=== PATIENT | female | born 1995 | race Caucasian/White ===

== ENCOUNTER 2018-09-09 07:13 | Inpatient (IN) | payer MEDICAID ==
[2018-09-09] MEDS ORDERED: Sodium Chloride 0.9% 10 ML Syringe FLUSH PRN (07:51)
[2018-09-09] MEDS ORDERED: Ondansetron 4 MG/2 ML SDV IVPUSH PRN (07:51)
[2018-09-09] MEDS ORDERED: Nalbuphine 20 MG/ML 1 ML Syringe IVPUSH PRN (07:51)
[2018-09-09] MEDS ORDERED: Oxytocin/Lactated Ringers 10 UNIT/1,000 ML BAG IV SCH ×4 (08:00→19:31)
[2018-09-09] MEDS ORDERED: Oxytocin/Lactated Ringers 20 UNIT/1,000 ML BAG IV SCH (08:00)
--- NOTE | 2018-09-09 08:07 | PCM.LDHP ---
L&D History of Present Illness - General Date of Service: 09/09/18 Admit Problem/Dx: Patient Status Order with Admit Dx/Problem 09/09/18 07:51 Patient Status [ADT] Routine Admission Diagnosis/Problem Admission Diagnosis/Problem 39 weeks gestation of Source of Information: Patient History Limitations: Reports: No Limitations - History of Present Illness Introduction:: Melba Case is a 23-year-old at 39 weeks gestational age (JAKE 2018) by 11 week ultrasound who presents for elective induction of labor in the setting of infant measuring smaller than anticipated but not IUGR and grade 3 placenta on recent ultrasound. She was seen on 09/07/2018 end had cervical exam where she was 2/70/-3/medium/anterior. She reports since then she has been doing well. Denies any contractions. Denies any abdominal or pelvic pain. Denies any leaking of fluid or vaginal bleeding. Reports good movement. Present Illness Comments:: Melba Case is a 23-year-old at 39 weeks 0 days (JAKE 09/16/2018) by 11 week ultrasound. She has had extremely limited care with only 2 visits with myself at 34 and 38 weeks. She did have an initial ultrasound done in [place] on 03/02/2018. That ultrasound gave her an estimated due date of 09/16/2018. Patient was then seen by an ladies underwear operator at around 17 weeks gestational age due to bleeding and had confirmation ultrasound that was consistent with her earlier ultrasound. She also had labs drawn at that time. Review of those labs shows O+ blood type with negative antibody screen. Her hematocrit was 44.8 with hemoglobin of 15.7 and platelets of 200 on 04/08/2018. She is varicella and rubella immune. Her RPR, hepatitis B surface antigen and HIV were all negative. Her urine culture was negative and showed suggestion of contamination. She did not have a 1 hour glucose test done. She had anatomy ultrasound done when she was thought to be 35 weeks gestational age but was closer to 37 weeks. There were limited views of the brain, extremities, aortic arch and cord insertion. The placenta was posterior and on the right lateral side and was grade 3. The estimated weight was 2828 g (6 lbs. 4 oz.) (14th percentile). Recommendation at her visit at 38 weeks was for her to undergo elective induction of labor given the small size and the grade 3 placenta. Patient was in agreement with this plan. 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 7 oz., elective induction for baby measuring large for dates per patient report G3: Current History of Chlamydia Her has been complicated by: * Late care with only 2 visits with myself in one visit in March when she had labs done * Tobacco use in with report of 1-2 cigarettes per day during the * Alcohol use during * History of bipolar disorder as well as ADHD, anxiety and depression, not on medications at this time * History of chlamydia infection, negatives in this - Related Data Allergies/Adverse Reactions: Allergies Allergy/AdvReac Type Severity Reaction Status Date / Time No Known Allergies Allergy Verified 10/05/15 13:34 Home Medications: Home Meds . 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: Reports: : 3 Para: 1 Neurological History: Reports: Migraines (Controlled with Tylenol) Psychiatric History: Reports: ADHD, Anxiety, Bipolar, Depression - Infectious Disease History Infectious Disease History: Reports: Chicken Pox, Other (See Below) (History of Chlamydia infection) Social & Family History - Tobacco Use Smoking Status *Q: Current Every Day Smoker Tobacco Use Within Last Twelve Months: Cigarettes - Tobacco Core Measures Tobacco Use/Smoking Within Last 30 Days: Yes Smoking Frequency Within Last 30 Days: Reports: Four or Less Cigarettes Per Day Smokeless Tobacco Use in Last 30 Days: No Desires Tobacco Cessation Medication: Yes Desired Tobacco Cessation Medication: Uncertain but would like nicotine replacement therapy - Alcohol Use Alcohol Use History: Yes Number of Drinks Per Day Comment: Patient reports that she had one glass of wine on her birthday and New Year's Stacie during this - Recreational Drug Use Recreational Drug Use: No Drug Use in Last 12 Months: No - Living Situation & Occupation Living situation: Reports: Single, with Family H&P Review of Systems - Review of Systems: Review Of Systems: See Below General: Denies: Fever, Chills, Malaise, Weakness HEENT: Reports: Post Nasal Drip, Sinus Congestion. Denies: Sore Throat, Visual Changes (Reports poor vision) Pulmonary: Reports: Cough (occasional). Denies: Shortness of Breath, Wheezing Cardiovascular: Denies: Chest Pain, Palpitations, Dyspnea on Exertion Gastrointestinal: Denies: Abdominal Pain, Constipation, Diarrhea, Nausea, Vomiting Genitourinary: Denies: Dysuria, Frequency, Burning, Pain, Urgency Musculoskeletal: Reports: Other (Hip pain). Denies: Back Pain, Joint Pain, Muscle Pain Skin: Denies: Rash, Lesions Psychiatric: Reports: Depression, Anxiety Neurological: Denies: Headache L&D Exam - Exam Exam: See Below - OB Specific Contraction Duration (sec): 45-60 Contraction Frequency (min): 5-8, irregular Contraction Intensity: Mild Movement: Active Heart Tones: Present Heart Tones per Min: 125 (+15 x 15 accelerations, no decelerations) Heart Rate (FHR) Variability: Moderate (6-25 bmp) Presentation: Vertex Estimated Weight: 6-6.5 pounds by K[place], 6 lbs. 4 oz. on recent ultrasound on 09/04/2018 - Montes Score Montes Score Cervix Position: Anterior Montes Score Consistency: Soft Montes Score Effacement: >80% (80%) Montes Score Dilation: 1-2 cm (2.5 cm) Montes Score 's Station: -3 Montes Score Total: 8 - Exam General: Alert, Oriented HEENT: Conjunctiva Clear, EOMI Neck: Supple, Trachea Midline Lungs: Clear to Auscultation, Normal Respiratory Effort Cardiovascular: Regular Rate, Regular Rhythm GI/Abdominal Exam: Soft, Non-Tender, No Distention, Other (Gravid). No: Guarding, Rigid, Rebound Genitourinary: Normal external exam, Other (24 [place] Santos bulb placed through the cervix manually. Bulb filled with 50 mL of sterile water. Mother and baby tolerated well.) Extremities: Normal Inspection, No Pedal Edema Skin: Warm, Dry, Intact Psychiatric: Alert, Normal Affect, Normal Mood - Patient Data Lab Results Last 24 hrs: Laboratory Results - last 24 hr 09/09/18 Range/Units 07:49 POC Glucose 91 (70-105) mg/dL - Problem List (1) 39 weeks gestation of SNOMED Code(s): 10901910 ICD Code: Z3A.39 - 39 WEEKS GESTATION OF Status: Acute Current Visit: Yes (2) Tobacco use complicating SNOMED Code(s): 415923382, 218881826 ICD Code: O99.330 - SMOKING (TOBACCO) COMPLICATING , UNSP TRIMESTER Status: Acute Current Visit: Yes (3) Anxiety SNOMED Code(s): 26241187 ICD Code: F41.9 - ANXIETY DISORDER, UNSPECIFIED Status: Acute Current Visit: Yes (4) Depression SNOMED Code(s): 01044122 ICD Code: F32.9 - MAJOR DEPRESSIVE DISORDER, SINGLE EPISODE, UNSPECIFIED Status: Acute Current Visit: Yes (5) Bipolar disorder SNOMED Code(s): 12604400 ICD Code: F31.9 - BIPOLAR DISORDER, UNSPECIFIED Status: Acute Current Visit: Yes (6) ADHD SNOMED Code(s): 764284134 ICD Code: F90.9 - ATTENTION-DEFICIT HYPERACTIVITY DISORDER, UNSPECIFIED TYPE Status: Acute Current Visit: Yes (7) Late care affecting in third trimester SNOMED Code(s): 713615360, 002910151, 216415716 ICD Code: O09.33 - SUPRVSN OF PREG W INSUFFICIENT ANTENAT CARE, THIRD TRIMESTER Status: Acute Current Visit: Yes Problem List Initiated/Reviewed/Updated: Yes Orders Last 24hrs: Active Orders 24 hr Category Date Time Status Patient Status [ADT] Routine ADT 09/09/18 07:51 Ordered Activity as Tolerated [RC] PFP Care 09/09/18 07:51 Ordered Blood Glucose Check, Bedside [RC] Q2HR Care 09/09/18 07:51 Ordered Communication Order [RC] ASDIRECTED Care 09/09/18 07:51 Ordered Heart Tones [RC] ASDIRECTED Care 09/09/18 07:52 Ordered Non Stress Test [RC] PER UNIT ROUTINE Care 09/09/18 07:51 Ordered Notify Provider Vital Signs [RC] PRN Care 09/09/18 07:53 Ordered Notify Provider [RC] PFP Care 09/09/18 07:51 Ordered Notify Provider [RC] PRN Care 09/09/18 07:51 Ordered Peripheral IV Care [RC] . DIRECTED Care 09/09/18 07:52 Ordered Pump Management, Intrathecal [RC] ASDIRECTED Care 09/09/18 07:53 Ordered Vital Signs [RC] PER UNIT ROUTINE Care 09/09/18 07:51 Ordered Regular Diet [DIET] Diet 09/09/18 Breakfast Ordered CBC WITH AUTO DIFF [HEME] Routine Lab 09/09/18 07:51 Ordered DRUG SCREEN, URINE [URCHEM] Routine Lab 09/09/18 07:51 Ordered RAPID PLASMA REAGIN,RPR [CHEM] Routine Lab 09/09/18 07:51 Ordered Lactated Ringers [Ringers, Lactated] 1,000 ml Med 09/09/18 08:00 Ordered IV ASDIRECTED Nalbuphine [Nubain] Med 09/09/18 07:51 Ordered 10 mg IVPUSH Q2H PRN Ondansetron [Zofran] Med 09/09/18 07:51 Ordered 4 mg IVPUSH Q4H PRN Oxytocin [Pitocin] 20 unit Med 09/09/18 08:00 Ordered Lactated Ringers [Ringers, Lactated] 1,000 ml IV TITRATE Oxytocin/Lactated Ringers [Pitocin in LR 10 Units/1,000 Med 09/09/18 08:00 Ordered ML] 10 unit in 1,000 ml IV .CONTINUOUS Oxytocin/Lactated Ringers [Pitocin in LR 10 Units/1,000 Med 09/09/18 08:00 Ordered ML] 10 unit in 1,000 ml IV .CONTINUOUS Sodium Chloride 0.9% [Saline Flush] Med 09/09/18 07:51 Ordered 10 ml FLUSH ASDIRECTED PRN Electronic Heart Tones Ext w TOCO [WOMSER] Oth 09/09/18 07:51 Ordered Routine Electronic Heart Tones Internal [WOMSER] Per Unit Oth 09/09/18 07:51 Ordered Routine Peripheral IV Insertion Adult [OM.PC] Routine Oth 09/09/18 07:51 Ordered Resuscitation Status Routine Resus Stat 09/09/18 07:51 Ordered Assessment/Plan Comment:: On initial cervical exam patient was dilated to 2.5/80/-3/anterior/soft. Peripheral [place] Santos bulb was placed manually through the cervix and filled with 50 mL of sterile water. Mother and baby tolerated procedure well. Refer to observation for elective induction of labor Start Pitocin for induction of labor Continuous monitoring Place IV and have Lactated Ringer's at 125 ml/hr May have small amounts of regular diet Activity as tolerated May have epidural as desired Plans to breast-feed after delivery Patient desires smoking cessation after delivery, we will discuss method after delivery. Anticipate vaginal delivery unless otherwise indicated Chris Weeks M.D. 8:21 AM 09/09/2018
[2018-09-09] MEDS ORDERED: fentaNYL 100 MCG/2 ML SDV EPIDUR PRN (08:22)
[2018-09-09] MEDS ORDERED: diphenhydrAMINE 50 MG/ML SDV IVPUSH PRN (08:22)
[2018-09-09] MEDS ORDERED: fentaNYL/Bupivacaine-NS 2 MCG/ML-0.125%/PF 100 ML Bag EP SCH (08:30)
--- NOTE | 2018-09-09 11:19 | PCM.PNLD ---
Labor Progress Note - VS & Meds Vital Signs: Last Vital Signs Temp 36.8 C 09/09/18 07:51 Pulse 93 09/09/18 07:51 Resp 18 09/09/18 07:51 BP 104/74 09/09/18 07:51 Pulse Ox Active Medications: Current Medications Diphenhydramine HCl (Benadryl) 25 mg IVPUSH Q6H PRN PRN Reason: Itching Ephedrine Sulfate (Ephedrine Sulfate) 5 mg IVPUSH ASDIRECTED PRN PRN Reason: HYPOTENTSION Fentanyl (Sublimaze) 100 mcg EPIDUR Q3H PRN PRN Reason: Pain Fentanyl/Bupivacaine HCl (Kkyqzwyj-Fuzri-Ds 2 Mcg/Ml-0.125%) 100 ml EP ASDIRECTED NEENA Lactated Ringer's (Ringers, Lactated) 1,000 mls @ 100 mls/hr IV ASDIRECTED NEENA Oxytocin/Lactated Ringer's (Pitocin In Lr 20 Units/1,000 Ml) 20 unit in 1,000 mls @ 6 mls/hr IV TITRATE NEENA; Protocol Oxytocin/Lactated Ringer's (Pitocin In Lr 10 Units/1,000 Ml) 10 unit in 1,000 mls @ 100 mls/hr IV .CONTINUOUS NEENA Oxytocin/Lactated Ringer's (Pitocin In Lr 10 Units/1,000 Ml) 10 unit in 1,000 mls @ 500 mls/hr IV .CONTINUOUS NEENA Influenza Virus Vaccine (Fluzone Quad [id number] Syringe) 60 mcg IM .ONCE ONE Stop: 09/09/18 16:01 Nalbuphine HCl (Nubain) 10 mg IVPUSH Q2H PRN PRN Reason: pain Ondansetron HCl (Zofran) 4 mg IVPUSH Q4H PRN PRN Reason: Nausea/Vomiting Sodium Chloride (Saline Flush) 10 ml FLUSH ASDIRECTED PRN PRN Reason: Keep Vein Open Discontinued Medications Influenza Virus Vaccine (Pharmacy To Dose - Influenza Vaccine) 1 each IM ONETIME ONE Stop: 09/09/18 09:46 - Uterine Contractions Uterine Monitoring Mode: External [place] Contraction Frequency (min): 2-5 Contraction Duration (sec): 45-60 Contraction Intensity: Moderate to Strong Uterine Resting Tone: Soft - Monitoring Monitor Mode: Doppler/Auscultation Heart Rate (FHR) Baseline: 125 Heart Rate (FHR) Variability: Moderate (6-25 bmp) Accelerations: Present, 15x15 Decelerations: None - Vaginal Exam Dilation (cm): 5 Effacement (Percent): 80 Station: -3 Cervical Position: Anterior Sterile Vaginal Exam Performed By: Chris Weeks Vaginal Exam Comment: Removed Santos bulb with small amount of vaginal bleeding noted. No active bleeding at this time. Cervical exam was 5/80/-3/soft/ anterior. - Labor Progress (Free Text) Labor Progress: * Patient progressing well. * No concerns at this time. * We will continue with the induction. Patient having some increasing frequency of contractions after placement of Santos bulb. Start on pitocin as needed if contractions space out. * Plan for artificial rupture of membranes once patient has made some cervical change with contractions * First POC blood sugar test was normal at 91. Repeat at this time and if normal we can discontinue blood sugar checks. * Anticipate vaginal delivery unless otherwise indicated. Chris Weeks MD 11:19 AM 09/09/2018
[2018-09-09] MEDS: Lactated Ringers 1,000 ML IV SCH ×3 (13:22→17:21)
--- NOTE | 2018-09-09 14:01 | PCM.PNLD ---
Labor Progress Note - VS & Meds Vital Signs: Last Vital Signs Temp 36.8 C 09/09/18 07:51 Pulse 93 09/09/18 07:51 Resp 18 09/09/18 07:51 BP 104/74 09/09/18 07:51 Pulse Ox Active Medications: Current Medications Diphenhydramine HCl (Benadryl) 25 mg IVPUSH Q6H PRN PRN Reason: Itching Ephedrine Sulfate (Ephedrine Sulfate) 5 mg IVPUSH ASDIRECTED PRN PRN Reason: HYPOTENTSION Fentanyl (Sublimaze) 100 mcg EPIDUR Q3H PRN PRN Reason: Pain Fentanyl/Bupivacaine HCl (Vnojqucs-Kivfj-Jc 2 Mcg/Ml-0.125%) 100 ml EP ASDIRECTED NEENA Lactated Ringer's (Ringers, Lactated) 1,000 mls @ 100 mls/hr IV ASDIRECTED NEENA Last Admin: 09/09/18 13:22 Dose: 100 mls/hr Oxytocin/Lactated Ringer's (Pitocin In Lr 20 Units/1,000 Ml) 20 unit in 1,000 mls @ 6 mls/hr IV TITRATE NEENA; Protocol Oxytocin/Lactated Ringer's (Pitocin In Lr 10 Units/1,000 Ml) 10 unit in 1,000 mls @ 100 mls/hr IV .CONTINUOUS NEENA Oxytocin/Lactated Ringer's (Pitocin In Lr 10 Units/1,000 Ml) 10 unit in 1,000 mls @ 500 mls/hr IV .CONTINUOUS NEENA Oxytocin/Lactated Ringer's (Pitocin In Lr 10 Units/1,000 Ml) 10 unit in 1,000 mls @ 12 mls/hr IV TITRATE NEENA; Protocol Last Admin: 09/09/18 13:30 Dose: 2 munits/min, 12 mls/hr Influenza Virus Vaccine (Fluzone Quad [id number] Syringe) 60 mcg IM .ONCE ONE Stop: 09/09/18 16:01 Nalbuphine HCl (Nubain) 10 mg IVPUSH Q2H PRN PRN Reason: pain Ondansetron HCl (Zofran) 4 mg IVPUSH Q4H PRN PRN Reason: Nausea/Vomiting Sodium Chloride (Saline Flush) 10 ml FLUSH ASDIRECTED PRN PRN Reason: Keep Vein Open Discontinued Medications Influenza Virus Vaccine (Pharmacy To Dose - Influenza Vaccine) 1 each IM ONETIME ONE Stop: 09/09/18 09:46 - Uterine Contractions Uterine Monitoring Mode: External [place] Contraction Frequency (min): irregular, 3-8 Contraction Duration (sec): 30-60 Contraction Intensity: Moderate to Strong Uterine Resting Tone: Soft - Monitoring Monitor Mode: Doppler/Auscultation Heart Rate (FHR) Baseline: 125 Heart Rate (FHR) Variability: Moderate (6-25 bmp) Accelerations: Present, 15x15 Decelerations: None Strip Review: Category I - Vaginal Exam Dilation (cm): 6 Effacement (Percent): 90 Station: -2 Cervical Position: Anterior Sterile Vaginal Exam Performed By: Chris Weeks Vaginal Exam Comment: Artificial rupture membranes performed with AmniHook. Return of clear fluid. Mother and baby tolerated procedure well. Cervix was 6/ 90/-2/soft/anterior. - Labor Progress (Free Text) Labor Progress: Patient with spacing out of her contractions since removal of the Santos bulb. Patient started on Pitocin for augmentation of labor. Artificial rupture of membranes with clear fluid. Continue to monitor contractions. Patient may have epidural as desired Urine drug screen negative Anticipate vaginal delivery unless otherwise indicated. Chris Weeks M.D. 2:01 PM 09/09/2018
--- NOTE | 2018-09-09 14:32 | PCM.PREANE ---
Preanesthetic Assessment - Anesthesia/Transfusion/Family Hx Anesthesia History: Prior Anesthesia Without Reaction Family History of Anesthesia Reaction: No Transfusion History: No Prior Transfusion(s) - Review of Systems General: Fatigue Pulmonary: No Symptoms Cardiovascular: No Symptoms Gastrointestinal: Abdominal Pain (labor contractions) Neurological: No Symptoms Other: Reports: None - Physical Assessment Pulse: 86 O2 Sat by Pulse Oximetry: 98 Respiratory Rate: 18 Blood Pressure: 107/43 Temperature: 36.8 C Vital Signs: Last Vital Signs Temp 36.8 C 09/09/18 07:51 Pulse 93 09/09/18 07:51 Resp 18 09/09/18 07:51 BP 104/74 09/09/18 07:51 Pulse Ox Height: 1.63 m Weight: 86.183 kg ASA Class: 2 Mental Status: Alert & Oriented x3 Airway Class: Mallampati = 1 Dentition: Reports: Normal Dentition Thyro-Mental Finger Breadths: 3 Mouth Opening Finger Breadths: 3 ROM/Head Extension: Full Lungs: Clear to Auscultation, Normal Respiratory Effort Cardiovascular: Regular Rate, Regular Rhythm - Lab Values: Laboratory Last Values WBC 9.53 K/mm3 (3.98-10.04) 09/09/18 08:00 RBC 3.93 M/mm3 (3.98-5.22) L 09/09/18 08:00 Hgb 12.2 gm/L (11.2-15.7) 09/09/18 08:00 Hct 36.2 % (34.1-44.9) 09/09/18 08:00 MCV 92.1 fl (79.4-94.8) 09/09/18 08:00 MCH 31.0 pg (25.6-32.2) 09/09/18 08:00 MCHC 33.7 g/dl (32.2-35.5) 09/09/18 08:00 RDW Std Deviation 42.5 fL (36.4-46.3) 09/09/18 08:00 Plt Count 344 K/mm3 (182-369) 09/09/18 08:00 MPV 9.5 fl (9.4-12.3) 09/09/18 08:00 Neut % (Auto) 51.7 % (34.0-71.1) 09/09/18 08:00 Lymph % (Auto) 31.6 % (19.3-51.7) 09/09/18 08:00 [place] % (Auto) 10.5 % (4.7-12.5) 09/09/18 08:00 Eos % (Auto) 5.5 (0.7-5.8) 09/09/18 08:00 Baso % (Auto) 0.2 % (0.1-1.2) 09/09/18 08:00 Neut # (Auto) 4.93 K/mm3 (1.56-6.13) 09/09/18 08:00 Lymph # (Auto) 3.01 K/mm3 (1.18-3.74) 09/09/18 08:00 [place] # (Auto) 1.00 K/mm3 (0.24-0.36) H 09/09/18 08:00 Eos # (Auto) 0.52 K/mm3 (0.04-0.36) H 09/09/18 08:00 Baso # (Auto) 0.02 K/mm3 (0.01-0.08) 09/09/18 08:00 POC Glucose 91 mg/dL (70-105) 09/09/18 07:49 Urine Opiates Screen Negative (WNJWHI=624) 09/09/18 10:25 Ur Buprenorphine Scrn Negative (CUTOFF=10) 09/09/18 10:25 Ur Oxycodone Screen Negative (QNM9GW=919) 09/09/18 10:25 Urine Methadone Screen Negative (IBCRZG=189) 09/09/18 10:25 Ur Propoxyphene Screen Negative (YCFHJG=338) 09/09/18 10:25 Ur Barbiturates Screen Negative (XAGUWY=926) 09/09/18 10:25 Ur Tricyclics Screen Negative (RQEFLS=405) 09/09/18 10:25 Ur Phencyclidine Scrn Negative (CUTOFF=25) 09/09/18 10:25 Ur Amphetamine Screen Negative (MBAYTR=889) 09/09/18 10:25 U Methamphetamines Scrn Negative (CZKHVT=564) 09/09/18 10:25 U Benzodiazepines Scrn Negative (NMQYPV=896) 09/09/18 10:25 U Cocaine Metab Screen Negative (VQHJFX=834) 09/09/18 10:25 U Marijuana (THC) Screen Negative (CUTOFF=50) 09/09/18 10:25 - Allergies Allergies/Adverse Reactions: Allergies Allergy/AdvReac Type Severity Reaction Status Date / Time No Known Allergies Allergy Verified 10/05/15 13:34 - Anesthesia Plan Pre-Op Medication Ordered: None - Acknowledgements Anesthesia Type Planned: Epidural Pt an Appropriate Candidate for the Planned Anesthesia: Yes Alternatives and Risks of Anesthesia Discussed w Pt/Guardian: Yes Pt/Guardian Understands and Agrees with Anesthesia Plan: Yes PreAnesthesia Questionnaire - Past Health History Medical/Surgical History: Denies Medical/Surgical History Gastrointestinal History: Reports: GERD 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 [No Known Home Meds] 10/05/15 [History] - CURRENT (IN HOUSE) MEDS Current Meds: Current Medications Diphenhydramine HCl (Benadryl) 25 mg IVPUSH Q6H PRN PRN Reason: Itching Ephedrine Sulfate (Ephedrine Sulfate) 5 mg IVPUSH ASDIRECTED PRN PRN Reason: HYPOTENTSION Fentanyl (Sublimaze) 100 mcg EPIDUR Q3H PRN PRN Reason: Pain Last Admin: 09/09/18 14:26 Dose: 100 mcg Fentanyl/Bupivacaine HCl (Bnpvbmwt-Xyuul-Ob 2 Mcg/Ml-0.125%) 100 ml EP ASDIRECTED NEENA Lactated Ringer's (Ringers, Lactated) 1,000 mls @ 100 mls/hr IV ASDIRECTED NEENA Last Admin: 09/09/18 13:22 Dose: 100 mls/hr Oxytocin/Lactated Ringer's (Pitocin In Lr 20 Units/1,000 Ml) 20 unit in 1,000 mls @ 6 mls/hr IV TITRATE NEENA; Protocol Oxytocin/Lactated Ringer's (Pitocin In Lr 10 Units/1,000 Ml) 10 unit in 1,000 mls @ 100 mls/hr IV .CONTINUOUS NEENA Oxytocin/Lactated Ringer's (Pitocin In Lr 10 Units/1,000 Ml) 10 unit in 1,000 mls @ 500 mls/hr IV .CONTINUOUS NEENA Oxytocin/Lactated Ringer's (Pitocin In Lr 10 Units/1,000 Ml) 10 unit in 1,000 mls @ 12 mls/hr IV TITRATE NEENA; Protocol Last Admin: 09/09/18 13:30 Dose: 2 munits/min, 12 mls/hr Influenza Virus Vaccine (Fluzone Quad [id number] Syringe) 60 mcg IM .ONCE ONE Stop: 09/09/18 16:01 Nalbuphine HCl (Nubain) 10 mg IVPUSH Q2H PRN PRN Reason: pain Ondansetron HCl (Zofran) 4 mg IVPUSH Q4H PRN PRN Reason: Nausea/Vomiting Sodium Chloride (Saline Flush) 10 ml FLUSH ASDIRECTED PRN PRN Reason: Keep Vein Open Discontinued Medications Influenza Virus Vaccine (Pharmacy To Dose - Influenza Vaccine) 1 each IM ONETIME ONE Stop: 09/09/18 09:46
[2018-09-09] MEDS ORDERED: Bupivacaine 0.25% 10 ML SDV ONE (16:00)
[2018-09-09] MEDS: ePHEDrine 50 MG/ML SDV IVPUSH PRN ×2 (17:00→17:17)
[2018-09-09] MEDS ORDERED: Lidocaine 1% 50 ML MDV ONE (19:00)
[2018-09-09] MEDS ORDERED: Misoprostol 200 MCG Tab ONE (19:03)
[2018-09-09] MEDS ORDERED: Lidocaine 1% 30 ML SDV INJECT ONE (19:10)
[2018-09-09] MEDS ORDERED: Misoprostol 200 MCG Tab PO STA (19:10)
[2018-09-09] MEDS ORDERED: Magnesium Hydroxide 400 MG/5 ML Susp 30 ML Cup PO PRN (19:31)
[2018-09-09] MEDS ORDERED: Hydrocortisone Acetate 25 MG Supp RECTAL PRN (19:31)
[2018-09-09] MEDS ORDERED: Lanolin 100% Cream 7 GM Tube TOP PRN (19:31)
[2018-09-09] MEDS ORDERED: Acetaminophen 325 MG Tab PO PRN (19:31)
[2018-09-09] MEDS ORDERED: Witch Hazel Medicated Pads 100/Jar TOP PRN (19:31)
[2018-09-09] MEDS ORDERED: Docusate Sodium 100 MG Cap PO PRN (19:31)
[2018-09-09] MEDS ORDERED: Benzocaine/Menthol 20%-0.5% Spray 56 GM Canister TOP PRN (19:31)
--- NOTE | 2018-09-09 19:40 | PCM.DEL ---
L & D Note - General Info Date of Service: 09/09/18 Mother's Due Date: 09/16/18 - Delivery Note Labor: Augmented by Oxytocin Cervical Ripening Method: Balloon Device, Oxytocin Delivery Outcome: Livebirth Delivery Method: Spontaneous Vaginal Delivery-Single Presentation: Left Occiput Anterior (KENNETH) Nuchal Cord: Present (x 1), Reduced Prep: Povidone-Iodine (Betadine Anesthesia Type: Epidural, Local Anesthetic: Lidocaine (Xylocaine) 1% Plain Local Anesthetic Volume: Other (10 cc) Amniotic Fluid Description: Clear Laceration: 1st Degree, Labial (left labial, repaired with 4-0 Vicryl), Perineal (midline, repaired with 4-0 Vicryl) Suture type: Vicryl Suture size: 4-0 Placenta: Intact, Spontaneous Cord: 3 Vessels Estimated Blood Loss: 400 [place]: Bulb Syringe, Stimulated, Warmed, [place] Used, Warmer Used Provider: Chris Weeks Score 1 min: 8 Score 5 min: 9 Second Stage Interventions: Reports: Pushing Effectively, Pushing, Pulls Own Legs Back Delivery Comments (Free Text/Narrative):: Stage I: Melba Case was admitted for elective induction of labor. On admission her cervix was dilated to 2 cm. She was GBS negative. She had a 24 [place] Santos bulb placed manually through the cervix and inflated with 50 mL of sterile water. After placement of the catheter she started to have contractions on her own and after approximately 3 hours the Santos bulb came out spontaneously. She continued to contract without augmentation after the Santos bulb came out. She dilated to 6 cm and had artificial rupture of membranes with clear fluid. She was started on Pitocin for augmentation of labor. She was given an epidural for anesthesia. She progressed complete and pushing. Stage II: On 09/09/2018 she had a normal vaginal delivery of a live male at 1842. Apgars of 8 & 9. Weight of 3270 g (7 lbs 3.3 oz). Length of 20.5 inches. There was a single nuchal cord that was reduced prior to delivery. was delivered in KENNETH position. The cord was doubly clamped and cut by patient. was placed on mother's abdomen. Stage III: She had a spontaneous delivery of an intact placenta in [place] presentation. Three vessel cord. She was given pitocin and fundal massage. She had a first-degree midline perineal and left labial laceration were both repaired with 4-0 Vicryl. She continued to have additional bleeding and lower uterine segment was not well contracted. She was given Cytotec 1000 mcg buccally to help with her bleeding. She had good response with the Cytotec with a firm uterus. Mom and baby were stable to recovery. EBL of 400 mL. Chris Weeks MD 7:40 PM 09/09/2018 Induction Criteria - Montes Score Montes Score Dilation: 1-2 cm Montes Score Effacement: >80% Montes Score Infant's Station: -3 Montes Score Consistency: Soft Montes Score Cervix Position: Midposition Montes Score Total: 7 - Induction Gestational Age >/= 39 wks: Yes Estimated Pelvis: Reports: Adequate Reassuring Monitoring Strip: Yes Absence of Tachy Systole: Yes - Augmentation Estimated Pelvis: Reports: Adequate Weight Estimated:: Reports: AGA Reassuring Monitoring Strip: Yes Absence of Tachy Systole: Yes - General Info Date of Service: 09/09/18 - Patient Data Vitals - Most Recent: Last Vital Signs Temp 36.8 C 09/09/18 14:32 Pulse 86 09/09/18 14:32 Resp 18 09/09/18 14:32 BP 107/43 L 09/09/18 14:32 Pulse Ox 98 09/09/18 14:32 Weight - Most Recent: 86.183 kg I&O - Last 24 Hours: Intake & Output 09/09/18 09/09/18 09/09/18 06:59 14:59 22:59 Intake Total 1240 2200 Balance 1240 2200 Lab Results Last 24 Hours: Laboratory Results - last 24 hr 09/09/18 09/09/18 09/09/18 Range/Units 07:49 08:00 10:25 WBC 9.53 (3.98-10.04) K/mm3 RBC 3.93 L (3.98-5.22) M/mm3 Hgb 12.2 (11.2-15.7) gm/L Hct 36.2 (34.1-44.9) % MCV 92.1 (79.4-94.8) fl MCH 31.0 (25.6-32.2) pg MCHC 33.7 (32.2-35.5) g/dl RDW Std Deviation 42.5 (36.4-46.3) fL Plt Count 344 (182-369) K/mm3 MPV 9.5 (9.4-12.3) fl Neut % (Auto) 51.7 (34.0-71.1) % Lymph % (Auto) 31.6 (19.3-51.7) % [place] % (Auto) 10.5 (4.7-12.5) % Eos % (Auto) 5.5 (0.7-5.8) Baso % (Auto) 0.2 (0.1-1.2) % Neut # (Auto) 4.93 (1.56-6.13) K/mm3 Lymph # (Auto) 3.01 (1.18-3.74) K/mm3 [place] # (Auto) 1.00 H (0.24-0.36) K/mm3 Eos # (Auto) 0.52 H (0.04-0.36) K/mm3 Baso # (Auto) 0.02 (0.01-0.08) K/mm3 POC Glucose 91 (70-105) mg/dL Urine Opiates Screen Negative (IGYYXB=660) Ur Buprenorphine Scrn Negative (CUTOFF=10) Ur Oxycodone Screen Negative (RST6IW=379) Urine Methadone Screen Negative (QDMZKT=687) Ur Propoxyphene Screen Negative (BEPZEK=393) Ur Barbiturates Screen Negative (QXDRBV=496) Ur Tricyclics Screen Negative (ZTMQBH=643) Ur Phencyclidine Scrn Negative (CUTOFF=25) Ur Amphetamine Screen Negative (CLLCYW=817) U Methamphetamines Scrn Negative (PNAKJE=644) U Benzodiazepines Scrn Negative (ZMTAIR=928) U Cocaine Metab Screen Negative (ABRQZI=961) U Marijuana (THC) Screen Negative (CUTOFF=50) 09/09/18 09/09/18 Range/Units 16:14 16:53 WBC (3.98-10.04) K/mm3 RBC (3.98-5.22) M/mm3 Hgb (11.2-15.7) gm/L Hct (34.1-44.9) % MCV (79.4-94.8) fl MCH (25.6-32.2) pg MCHC (32.2-35.5) g/dl RDW Std Deviation (36.4-46.3) fL Plt Count (182-369) K/mm3 MPV (9.4-12.3) fl Neut % (Auto) (34.0-71.1) % Lymph % (Auto) (19.3-51.7) % [place] % (Auto) (4.7-12.5) % Eos % (Auto) (0.7-5.8) Baso % (Auto) (0.1-1.2) % Neut # (Auto) (1.56-6.13) K/mm3 Lymph # (Auto) (1.18-3.74) K/mm3 [place] # (Auto) (0.24-0.36) K/mm3 Eos # (Auto) (0.04-0.36) K/mm3 Baso # (Auto) (0.01-0.08) K/mm3 POC Glucose 68 L 87 (70-105) mg/dL Urine Opiates Screen (FMWESV=380) Ur Buprenorphine Scrn (CUTOFF=10) Ur Oxycodone Screen (CFE3JH=863) Urine Methadone Screen (DSVPQI=321) Ur Propoxyphene Screen (DSRVVR=460) Ur Barbiturates Screen (AUTLST=611) Ur Tricyclics Screen (UXMCQJ=251) Ur Phencyclidine Scrn (CUTOFF=25) Ur Amphetamine Screen (FPLXOY=510) U Methamphetamines Scrn (UTPUEX=675) U Benzodiazepines Scrn (AMZJSU=417) U Cocaine Metab Screen (AIOWAK=972) U Marijuana (THC) Screen (CUTOFF=50) Med Orders - Current: Current Medications Acetaminophen (Tylenol) 650 mg PO Q6H PRN PRN Reason: mild pain or fever Benzocaine/Menthol (Dermoplast Pain Relief [place]) 0 gm TOP ASDIRECTED PRN PRN Reason: Perineal Comfort Measure Docusate Sodium (Colace) 100 mg PO BID PRN PRN Reason: Constipation Emollient Ointment (Lansinoh Hpa) 0 gm TOP ASDIRECTED PRN PRN Reason: Sore Nipples Hydrocortisone Acetate (Anucort-Hc) 25 mg RECTAL BID PRN PRN Reason: Hemorrhoid pain Oxytocin/Lactated Ringer's (Pitocin In Lr 10 Units/1,000 Ml) 10 unit in 1,000 mls @ 100 mls/hr IV TITRATE NEENA; Protocol Ibuprofen (Motrin) 600 mg PO Q6H PRN PRN Reason: Mild pain or fever Magnesium Hydroxide (Milk Of Magnesia) 30 ml PO BEDTIME PRN PRN Reason: Constipation Prenat Multivit/[place]/Iron/Folic Ac ( Plus Iron) 1 each PO DAILY [facility] Eliazar Talavera (Tucks) 1 pad TOP ASDIRECTED PRN PRN Reason: Hemorrhoid pain Discontinued Medications Diphenhydramine HCl (Benadryl) 25 mg IVPUSH Q6H PRN PRN Reason: Itching Ephedrine Sulfate (Ephedrine Sulfate) 5 mg IVPUSH ASDIRECTED PRN PRN Reason: HYPOTENTSION Last Admin: 09/09/18 17:17 Dose: 5 mg Fentanyl (Sublimaze) 100 mcg EPIDUR Q3H PRN PRN Reason: Pain Last Admin: 09/09/18 14:26 Dose: 100 mcg Fentanyl/Bupivacaine HCl (Uzozuanq-Mcizy-Zb 2 Mcg/Ml-0.125%) 100 ml EP ASDIRECTED NEENA Lactated Ringer's (Ringers, Lactated) 1,000 mls @ 100 mls/hr IV ASDIRECTED NEENA Last Admin: 09/09/18 17:21 Dose: 100 mls/hr Oxytocin/Lactated Ringer's (Pitocin In Lr 20 Units/1,000 Ml) 20 unit in 1,000 mls @ 6 mls/hr IV TITRATE NEENA; Protocol Oxytocin/Lactated Ringer's (Pitocin In Lr 10 Units/1,000 Ml) 10 unit in 1,000 mls @ 100 mls/hr IV .CONTINUOUS NEENA Oxytocin/Lactated Ringer's (Pitocin In Lr 10 Units/1,000 Ml) 10 unit in 1,000 mls @ 500 mls/hr IV .CONTINUOUS NEENA Oxytocin/Lactated Ringer's (Pitocin In Lr 10 Units/1,000 Ml) 10 unit in 1,000 mls @ 12 mls/hr IV TITRATE NEENA; Protocol Last Titration: 09/09/18 18:42 Dose: 900 mls/hr Influenza Virus Vaccine (Pharmacy To Dose - Influenza Vaccine) 1 each IM ONETIME ONE Stop: 09/09/18 09:46 Influenza Virus Vaccine (Fluzone Quad [id number] Syringe) 60 mcg IM .ONCE ONE Stop: 09/09/18 16:01 Lidocaine HCl (Xylocaine 1%) Confirm Administered Dose 50 ml .ROUTE .STK-MED ONE Stop: 09/09/18 19:01 Last Admin: 09/09/18 19:19 Dose: 50 ml Lidocaine HCl (Xylocaine-Mpf 1%) 50 ml INJECT ONETIME ONE Stop: 09/09/18 19:11 Last Admin: 09/09/18 19:05 Dose: 50 ml Misoprostol (Cytotec) Confirm Administered Dose 1,000 mcg .ROUTE .STK-MED ONE Stop: 09/09/18 19:04 Misoprostol (Cytotec) 1,000 mcg PO NOW STA Stop: 09/09/18 19:11 Last Admin: 09/09/18 19:05 Dose: 1,000 mcg Nalbuphine HCl (Nubain) 10 mg IVPUSH Q2H PRN PRN Reason: pain Ondansetron HCl (Zofran) 4 mg IVPUSH Q4H PRN PRN Reason: Nausea/Vomiting Sodium Chloride (Saline Flush) 10 ml FLUSH ASDIRECTED PRN PRN Reason: Keep Vein Open - Problem List & Annotations (1) 39 weeks gestation of SNOMED Code(s): 67673972 Code(s): Z3A.39 - 39 WEEKS GESTATION OF Status: Acute Current Visit: Yes (2) Tobacco use complicating SNOMED Code(s): 623762858, 233440277 Code(s): O99.330 - SMOKING (TOBACCO) COMPLICATING , UNSP TRIMESTER Status: Acute Current Visit: Yes (3) Anxiety SNOMED Code(s): 43747838 Code(s): F41.9 - ANXIETY DISORDER, UNSPECIFIED Status: Acute Current Visit: Yes (4) Depression SNOMED Code(s): 81830211 Code(s): F32.9 - MAJOR DEPRESSIVE DISORDER, SINGLE EPISODE, UNSPECIFIED Status: Acute Current Visit: Yes (5) Bipolar disorder SNOMED Code(s): 66477018 Code(s): F31.9 - BIPOLAR DISORDER, UNSPECIFIED Status: Acute Current Visit: Yes (6) ADHD SNOMED Code(s): 046519900 Code(s): F90.9 - ATTENTION-DEFICIT HYPERACTIVITY DISORDER, UNSPECIFIED TYPE Status: Acute Current Visit: Yes (7) Late care affecting in third trimester SNOMED Code(s): 992572944, 672793156, 370565047 Code(s): O09.33 - SUPRVSN OF PREG W INSUFFICIENT ANTENAT CARE, THIRD TRIMESTER Status: Acute Current Visit: Yes (8) Vaginal delivery SNOMED Code(s): 029581730 Code(s): O80 - ENCOUNTER FOR FULL-TERM UNCOMPLICATED DELIVERY Status: Acute Current Visit: Yes (9) First degree perineal laceration during delivery SNOMED Code(s): 537690549 Code(s): O70.0 - FIRST DEGREE PERINEAL LACERATION DURING DELIVERY Status: Acute Current Visit: Yes - Problem List Review Problem List Initiated/Reviewed/Updated: Yes - My Orders Last 24 Hours: My Active Orders 09/09/18 07:51 Resuscitation Status Routine 09/09/18 07:52 Peripheral IV Care [RC] . DIRECTED 09/09/18 08:00 RAPID PLASMA REAGIN,RPR [CHEM] Routine 09/09/18 10:11 Consult to Case Management/Reel Slitter [CONS] Routine 09/09/18 19:31 Patient Status [ADT] Routine Activity as Tolerated [RC] PER UNIT ROUTINE May Shower [RC] ASDIRECTED Notify Provider Vital Signs [RC] ASDIRECTED Vital Signs [RC] ASDIRECTED Acetaminophen [Tylenol] 650 mg PO Q6H PRN Benzocaine/Menthol [Dermoplast Pain Relief [place]] See Dose Instructions TOP ASDIRECTED PRN Docusate Sodium [Colace] 100 mg PO BID PRN Hydrocortisone Acetate [Anucort-HC] 25 mg RECTAL BID PRN Ibuprofen [Motrin] 600 mg PO Q6H PRN Lanolin [Lansinoh HPA] See Dose Instructions TOP ASDIRECTED PRN Magnesium Hydroxide [Milk of Magnesia] 30 ml PO BEDTIME PRN Oxytocin/Lactated Ringers [Pitocin in LR 10 Units/1,000 ML] 10 unit in 1,000 ml IV TITRATE [place] [Tucks] 1 pad TOP ASDIRECTED PRN Assess Lochia [WOMSER] Per Unit Routine Assess Uterine Involution [WOMSER] Per Unit Routine Breast Pump [WOMSER] Per Unit Routine Heat Therapy [OM.PC] PRN Ice Therapy [OM.PC] Per Unit Routine Medication Administration Instruction [OM.PC] Routine Perineal Care [OM.PC] Per Unit Routine Peripheral IV Discontinue [OM.PC] Routine Sitz Bath [OM.PC] Per Unit Routine 09/09/18 Dinner Regular Diet [DIET] 09/10/18 09:00 Vit with Ca/FA/Iron [ Plus Iron] 1 each PO DAILY 09/10/18 19:31 Heat Therapy [OM.PC] PRN - Plan Plan:: Admit to inpatient following normal spontaneous vaginal delivery Continue Pitocin per unit protocol following delivery of placenta and lactated Ringer's until tolerating regular diet Regular diet Vitals per unit routine Ibuprofen and Tylenol for pain control Assist with breast-feeding as needed Continue to monitor lochia Anticipate discharge home on day #1 or #2 Chris Weeks MD 7:48 PM 09/09/2018
--- NOTE | 2018-09-10 07:59 | PCM.SN ---
- Free Text/Narrative Note: Post Progress Note PPD # 1 Subjective: Doing well overall. Ambulating without difficulty. Lochia moderate amount overnight but seems to be slowing at this time. She had to change her pad several times over the course of 4 hours but since then has been able to make it throughout the night without changing her pad. Voiding without difficulty. Tolerating regular diet with minimal amount of nausea but denies any vomiting. Pain controlled with oral medications. Breast-feeding with bottle supplementation with minimal difficulty. Objective: Vitals: Vital Signs - 24 hr 09/09/18 09/10/18 14:32 05:31 Temperature 36.8 C Pulse, 86 66 Peripheral Respiratory 18 14 Rate Blood Pressure 107/43 L 139/99 H O2 Sat by Pulse 98 92 L Oximetry Physical Exam General: Alert and oriented, no acute distress Lungs: Clear to auscultation bilaterally Heart: Regular rate and rhythm Abdomen: Soft, minimal appropriate tenderness, non-distended, fundus midline, nontender, and at the umbilicus Extremities: Trace edema in bilateral lower extremities to ankles ASSESSMENT: 23-year-old female s/p normal vaginal delivery PPD #1, complicated by late care with 2 visits total, tobacco use in , alcohol use in , history of bipolar disorder, history of ADHD, history of anxiety, history of depression, history of chlamydia infection before and negative during the PLAN: Doing well Breast feeding with minimal difficulty. Assist as needed Lochia minimal. Continue to monitor for appropriate lochia. Continue routine care Social work consult for single mother with father is not involved and late care Anticipate discharge home tomorrow Chris Weeks MD 7:59 AM 09/10/2018
[2018-09-10] MEDS: Prenatal Multivitamin with Calcium/Folic Acid/Iron Tab PO SCH (08:12)
[2018-09-10] MEDS: Ibuprofen 600 MG Tab PO PRN ×2 (08:12→15:55)
--- NOTE | 2018-09-10 08:43 | PCM48HPAN ---
Post Anesthesia Note - EVALUATION WITHIN 48HRS OF ANESTHETIC Vital Signs in Normal Range: Yes Patient Participated in Evaluation: Yes Respiratory Function Stable: Yes Airway Patent: Yes Cardiovascular Function Stable: Yes Hydration Status Stable: Yes Pain Control Satisfactory: Yes Nausea and Vomiting Control Satisfactory: Yes Mental Status Recovered: Yes Pulse Rate: 66 Resp Rate: 14 Temperature: 98.2 F Blood Pressure: 139/99 (may be false reading)
--- NOTE | 2018-09-11 08:14 | PCM.SN ---
- Free Text/Narrative Note: Post Progress Note PPD # 2 Subjective: Doing well overall. Ambulating without difficulty. Lochia decreased significantly since yesterday and minimal at this time. Voiding without difficulty but having some burning at the laceration site with urination. Tolerating regular diet without any nausea or vomiting. Pain controlled with oral medications. Breast-feeding with bottle supplementation with minimal difficulty. Objective: Vitals: Physical Exam General: Alert and oriented, no acute distress Lungs: Clear to auscultation bilaterally Heart: Regular rate and rhythm Abdomen: Soft, minimal appropriate tenderness, non-distended, fundus midline, nontender, and at the umbilicus Extremities: Trace edema in bilateral lower extremities to mid-shins ASSESSMENT: 23-year-old female s/p normal vaginal delivery PPD #2, complicated by late care with 2 visits total, tobacco use in , alcohol use in , history of bipolar disorder, history of ADHD, history of anxiety, history of depression, history of chlamydia infection before and negative during the PLAN: Doing well Breast feeding with bottle supplementation with minimal difficulty. Assist as needed Lochia minimal. Continue to monitor for appropriate lochia. Continue routine care Social work consult without significant concerns. Gave patient information for resources available in town. Discharge home today Chris Weeks MD 8:05 AM 09/11/2018
--- NOTE | 2018-09-11 08:23 | PCM.DCSUM1 ---
Discharge Summary - Hospital Course Free Text/Narrative:: Date of Service: 09/09/18 Mother's Due Date: 09/16/18 - Delivery Note Labor: Augmented by Oxytocin Cervical Ripening Method: Balloon Device, Oxytocin Delivery Outcome: Livebirth Infant Delivery Method: Spontaneous Vaginal Delivery-Single Presentation: Left Occiput Anterior (KENNETH) Nuchal Cord: Present (x 1), Reduced Prep: Povidone-Iodine (Betadine Anesthesia Type: Epidural, Local Anesthetic: Lidocaine (Xylocaine) 1% Plain Local Anesthetic Volume: Other (10 cc) Amniotic Fluid Description: Clear Laceration: 1st Degree, Labial (left labial, repaired with 4-0 Vicryl), Perineal (midline, repaired with 4-0 Vicryl) Suture type: Vicryl Suture size: 4-0 Placenta: Intact, Spontaneous Cord: 3 Vessels Estimated Blood Loss: 400 [place]: Bulb Syringe, Stimulated, Warmed, [place] Used, Warmer Used Provider: Chris Weeks Score 1 min: 8 Score 5 min: 9 Second Stage Interventions: Reports: Pushing Effectively, Pushing, Pulls Own Legs Back Delivery Comments (Free Text/Narrative):: Stage I: Melba Case was admitted for elective induction of labor. On admission her cervix was dilated to 2 cm. She was GBS negative. She had a 24 [place] Santos bulb placed manually through the cervix and inflated with 50 mL of sterile water. After placement of the catheter she started to have contractions on her own and after approximately 3 hours the Santos bulb came out spontaneously. She continued to contract without augmentation after the Santos bulb came out. She dilated to 6 cm and had artificial rupture of membranes with clear fluid. She was started on Pitocin for augmentation of labor. She was given an epidural for anesthesia. She progressed complete and pushing. Stage II: On 09/09/2018 she had a normal vaginal delivery of a live male at 1842. Apgars of 8 & 9. Weight of 3270 g (7 lbs 3.3 oz). Length of 20.5 inches. There was a single nuchal cord that was reduced prior to delivery. Infant was delivered in KENNETH position. The cord was doubly clamped and cut by patient. Infant was placed on mother's abdomen. Stage III: She had a spontaneous delivery of an intact placenta in [place] presentation. Three vessel cord. She was given pitocin and fundal massage. She had a first-degree midline perineal and left labial laceration were both repaired with 4-0 Vicryl. She continued to have additional bleeding and lower uterine segment was not well contracted. She was given Cytotec 1000 mcg buccally to help with her bleeding. She had good response with the Cytotec with a firm uterus. Mom and baby were stable to recovery. EBL of 400 mL. HPI Initial Comments: Date of Service: 09/09/18 Mother's Due Date: 09/16/18 - Delivery Note Labor: Augmented by Oxytocin Cervical Ripening Method: Balloon Device, Oxytocin Delivery Outcome: Livebirth Infant Delivery Method: Spontaneous Vaginal Delivery-Single Presentation: Left Occiput Anterior (KENNETH) Nuchal Cord: Present (x 1), Reduced Prep: Povidone-Iodine (Betadine Anesthesia Type: Epidural, Local Anesthetic: Lidocaine (Xylocaine) 1% Plain Local Anesthetic Volume: Other (10 cc) Amniotic Fluid Description: Clear Laceration: 1st Degree, Labial (left labial, repaired with 4-0 Vicryl), Perineal (midline, repaired with 4-0 Vicryl) Suture type: Vicryl Suture size: 4-0 Placenta: Intact, Spontaneous Cord: 3 Vessels Estimated Blood Loss: 400 [place]: Bulb Syringe, Stimulated, Warmed, [place] Used, Warmer Used Provider: Chris Weeks Score 1 min: 8 Score 5 min: 9 Second Stage Interventions: Reports: Pushing Effectively, Pushing, Pulls Own Legs Back Delivery Comments (Free Text/Narrative):: Stage I: Melba Case was admitted for elective induction of labor. On admission her cervix was dilated to 2 cm. She was GBS negative. She had a 24 [place] Santos bulb placed manually through the cervix and inflated with 50 mL of sterile water. After placement of the catheter she started to have contractions on her own and after approximately 3 hours the Santos bulb came out spontaneously. She continued to contract without augmentation after the Santos bulb came out. She dilated to 6 cm and had artificial rupture of membranes with clear fluid. She was started on Pitocin for augmentation of labor. She was given an epidural for anesthesia. She progressed complete and pushing. Stage II: On 09/09/2018 she had a normal vaginal delivery of a live male infant at 1842. Apgars of 8 & 9. Weight of 3270 g (7 lbs 3.3 oz). Length of 20.5 inches. There was a single nuchal cord that was reduced prior to delivery. Infant was delivered in KENNETH position. The cord was doubly clamped and cut by patient. was placed on mother's abdomen. Stage III: She had a spontaneous delivery of an intact placenta in [place] presentation. Three vessel cord. She was given pitocin and fundal massage. She had a first-degree midline perineal and left labial laceration were both repaired with 4-0 Vicryl. She continued to have additional bleeding and lower uterine segment was not well contracted. She was given Cytotec 1000 mcg buccally to help with her bleeding. She had good response with the Cytotec with a firm uterus. Mom and baby were stable to recovery. EBL of 400 mL. Brief History: Date of Service: 09/09/18. Mother's Due Date: 09/16/18. - Delivery Note. Labor: Augmented by Oxytocin. Cervical Ripening Method: Balloon Device, Oxytocin. Delivery Outcome: Livebirth. Delivery Method : Spontaneous Vaginal Delivery-Single. Presentation: Left Occiput Anterior (KENNETH). Nuchal Cord: Present (x 1), Reduced. Prep: Povidone-Iodine ( Betadine. Anesthesia Type: Epidural, Local. Anesthetic: Lidocaine (Xylocaine) 1% Plain. Local Anesthetic Volume: Other (10 cc). Amniotic Fluid Description: Clear. Laceration: 1st Degree, Labial (left labial, repaired with 4-0 Vicryl), Perineal (midline, repaired with 4-0 Vicryl). Suture type: Vicryl. Suture size : 4-0. Placenta: Intact, Spontaneous. Cord: 3 Vessels. Estimated Blood Loss: 400. : Bulb Syringe, Stimulated, Warmed, [place] Used, Warmer Used. Provider: Chris Weeks. Score 1 min: 8. Score 5 min: 9. Second Stage Interventions: Reports: Pushing Effectively, Pushing, Pulls Own Legs Back. Delivery Comments (Free Text/Narrative):: Stage I: Melba Case was admitted for elective induction of labor. On admission her cervix was dilated to 2 cm. She was GBS negative. She had a 24 [place] Santos bulb placed manually through the cervix and inflated with 50 mL of sterile water. After placement of the catheter she started to have contractions on her own and after approximately 3 hours the Santos bulb came out spontaneously. She continued to contract without augmentation after the Santos bulb came out. She dilated to 6 cm and had artificial rupture of membranes with clear fluid. She was started on Pitocin for augmentation of labor. She was given an epidural for anesthesia. She progressed complete and pushing. Stage II: On 09/09/2018 she had a normal vaginal delivery of a live male at 1842. Apgars of 8 & 9. Weight of 3270 g (7 lbs 3.3 oz). Length of 20.5 inches. There was a single nuchal cord that was reduced prior to delivery. was delivered in KENNETH position. The cord was doubly clamped and cut by patient. Infant was placed on mother's abdomen. Stage III: She had a spontaneous delivery of an intact placenta in [place] presentation. Three vessel cord. She was given pitocin and fundal massage. She had a first-degree midline perineal and left labial laceration were both repaired with 4-0 Vicryl. She continued to have additional bleeding and lower uterine segment was not well contracted. She was given Cytotec 1000 mcg buccally to help with her bleeding. She had good response with the Cytotec with a firm uterus. Mom and baby were stable to recovery. EBL of 400 mL. Diagnosis: Stroke: No - Discharge Data Discharge Date: 09/11/18 Discharge Disposition: Home, Self-Care 01 Condition: Good - Discharge Diagnosis/Problem(s) (1) 39 weeks gestation of SNOMED Code(s): 06742241 ICD Code: Z3A.39 - 39 WEEKS GESTATION OF Status: Acute Current Visit: Yes (2) Tobacco use complicating SNOMED Code(s): 644285960, 504663109 ICD Code: O99.330 - SMOKING (TOBACCO) COMPLICATING , UNSP TRIMESTER Status: Acute Current Visit: Yes (3) Anxiety SNOMED Code(s): 49698046 ICD Code: F41.9 - ANXIETY DISORDER, UNSPECIFIED Status: Acute Current Visit: Yes (4) Depression SNOMED Code(s): 89170940 ICD Code: F32.9 - MAJOR DEPRESSIVE DISORDER, SINGLE EPISODE, UNSPECIFIED Status: Acute Current Visit: Yes (5) Bipolar disorder SNOMED Code(s): 19748428 ICD Code: F31.9 - BIPOLAR DISORDER, UNSPECIFIED Status: Acute Current Visit: Yes (6) ADHD SNOMED Code(s): 636235630 ICD Code: F90.9 - ATTENTION-DEFICIT HYPERACTIVITY DISORDER, UNSPECIFIED TYPE Status: Acute Current Visit: Yes (7) Late care affecting in third trimester SNOMED Code(s): 513301156, 960867793, 484488945 ICD Code: O09.33 - SUPRVSN OF PREG W INSUFFICIENT ANTENAT CARE, THIRD TRIMESTER Status: Acute Current Visit: Yes (8) Vaginal delivery SNOMED Code(s): 815721142 ICD Code: O80 - ENCOUNTER FOR FULL-TERM UNCOMPLICATED DELIVERY Status: Acute Current Visit: Yes (9) First degree perineal laceration during delivery SNOMED Code(s): 614740210 ICD Code: O70.0 - FIRST DEGREE PERINEAL LACERATION DURING DELIVERY Status: Acute Current Visit: Yes - Patient Summary/Data Complications: None Consults: Consultations 09/09/18 10:11 Consult to [facility] [[facility]] Routine Hospital Course: Melba Case was admitted for elective induction of labor. On admission her cervix was dilated to 2 cm. She was GBS negative. She had a 24 Q[place] foldable placed manually through the cervix and inflated with 50 mL of sterile water. She started have natural contractions without augmentation and the Santos bulb came out spontaneously. She continued to have spontaneous contractions without augmentation after the Santos bulb came out for several hours. She dilated to 6 cm and had artificial rupture of membranes with clear fluid. She was given pitocin for augmentation. She was given an epidural for anesthesia. She progressed to complete and began pushing. On 09/09/2018 she had a normal vaginal delivery of a live male infant at 1842. Apgars of 8 and 9. Weight of 3270 g (7 pounds 3.3 ounces). Her course was uneventful. Her pain was well controlled and she had minimal lochia. She was ambulating, tolerating a regular diet and voiding normally. She was breast feeding with bottle supplementation. She was afebrile and her hematocrit was 36.2 on admission. She desired to be discharged home on the morning of PPD #2. Her blood type is O+. - Patient Instructions Diet: Regular Diet as Tolerated Activity: Apply Ice, As Tolerated Activity, Other: Nothing in the vagina for 6 weeks Driving: May Drive Today Showering/Bathing: May Shower Notify Provider of: Fever, Increased Pain, Swelling and Redness, Drainage, Nausea and/or Vomiting Other/Special Instructions: Please contact your physician's office if you have heavy vaginal bleeding enough to soak a pad in less than an hour for several hours. Monitor for any signs of an infection in the breasts with severe pain or redness of the breast. - Discharge Plan *PRESCRIPTION DRUG MONITORING PROGRAM REVIEWED*: Not Applicable *COPY OF PRESCRIPTION DRUG MONITORING REPORT IN PATIENT MARKUS: Not Applicable Home Medications: Home Meds Acetaminophen [Tylenol] 650 mg PO Q6H PRN tablet 09/11/18 [Rx] Benzocaine/Menthol [Dermoplast Pain Relief [place]] 1 spray TOP ASDIRECTED PRN canister 09/11/18 [Rx] Docusate Sodium [Colace] 100 mg PO BID PRN cap 09/11/18 [Rx] Hydrocortisone Acetate [Anucort-HC] 25 mg RECTAL BID PRN supp 09/11/18 [Rx] Ibuprofen [Motrin] 600 mg PO Q6H PRN tablet 09/11/18 [Rx] Lanolin [Lansinoh HPA] 1 applic TOP ASDIRECTED PRN tube 09/11/18 [Rx] Vit with Ca/FA/Iron [ Plus Iron] 1 each PO DAILY tablet [Rx] Witch Sadaf [Tucks] 1 pad TOP ASDIRECTED PRN pad 09/11/18 [Rx] Patient Handouts: Vaginal Delivery, Care After, Care of a Perineal Tear Referrals: Chris Weeks MD [Primary Care Provider] - (Follow-up in 2-3 weeks for routine visit or earlier as needed.) - Discharge Summary/Plan Comment DC Time >30 min.: No - Patient Data Vitals - Most Recent: Last Vital Signs Temp 36.8 C 09/11/18 03:50 Pulse 59 L 09/11/18 03:50 Resp 14 09/11/18 03:50 BP 88/55 L 09/11/18 03:50 Pulse Ox 99 09/11/18 03:50 Weight - Most Recent: 86.183 kg I&O - Last 24 hours: Intake & Output 09/10/18 09/11/18 09/11/18 22:59 06:59 14:59 Intake Total 0 Balance 0 Lab Results - Last 24 hrs: Laboratory Results - last 24 hr 09/09/18 Range/Units 08:00 RPR Non-reactive (NONREACTIVE) Med Orders - Current: Current Medications Acetaminophen (Tylenol) 650 mg PO Q6H PRN PRN Reason: mild pain or fever Benzocaine/Menthol (Dermoplast Pain Relief [place]) 0 gm TOP ASDIRECTED PRN PRN Reason: Perineal Comfort Measure Last Admin: 09/09/18 20:56 Dose: 1 applic Docusate Sodium (Colace) 100 mg PO BID PRN PRN Reason: Constipation Emollient Ointment (Lansinoh Hpa) 0 gm TOP ASDIRECTED PRN PRN Reason: Sore Nipples Last Admin: 09/10/18 12:42 Dose: 1 applic Hydrocortisone Acetate (Anucort-Hc) 25 mg RECTAL BID PRN PRN Reason: Hemorrhoid pain Oxytocin/Lactated Ringer's (Pitocin In Lr 10 Units/1,000 Ml) 10 unit in 1,000 mls @ 100 mls/hr IV TITRATE NEENA; Protocol Ibuprofen (Motrin) 600 mg PO Q6H PRN PRN Reason: Mild pain or fever Last Admin: 09/10/18 15:55 Dose: 600 mg Magnesium Hydroxide (Milk Of Magnesia) 30 ml PO BEDTIME PRN PRN Reason: Constipation Prenat Multivit/[place]/Iron/Folic Ac ( Plus Iron) 1 each PO DAILY NEENA Last Admin: 09/10/18 08:12 Dose: 1 each Witch Sadaf ([place]) 1 pad TOP ASDIRECTED PRN PRN Reason: Hemorrhoid pain Last Admin: 09/09/18 20:56 Dose: 1 applic Discontinued Medications Bupivacaine HCl (Sensorcaine-Mpf 0.25%) 10 ml .ROUTE .STK-MED ONE Stop: 09/09/18 16:01 Diphenhydramine HCl (Benadryl) 25 mg IVPUSH Q6H PRN PRN Reason: Itching Ephedrine Sulfate (Ephedrine Sulfate) 5 mg IVPUSH ASDIRECTED PRN PRN Reason: HYPOTENTSION Last Admin: 09/09/18 17:17 Dose: 5 mg Fentanyl (Sublimaze) 100 mcg EPIDUR Q3H PRN PRN Reason: Pain Last Admin: 09/09/18 14:26 Dose: 100 mcg Fentanyl/Bupivacaine HCl (Ksplmazp-Axsel-Ch 2 Mcg/Ml-0.125%) 100 ml EP ASDIRECTED NEENA Lactated Ringer's (Ringers, Lactated) 1,000 mls @ 100 mls/hr IV ASDIRECTED NEENA Last Admin: 09/09/18 17:21 Dose: 100 mls/hr Oxytocin/Lactated Ringer's (Pitocin In Lr 20 Units/1,000 Ml) 20 unit in 1,000 mls @ 6 mls/hr IV TITRATE NEENA; Protocol Oxytocin/Lactated Ringer's (Pitocin In Lr 10 Units/1,000 Ml) 10 unit in 1,000 mls @ 100 mls/hr IV .CONTINUOUS NEENA Oxytocin/Lactated Ringer's (Pitocin In Lr 10 Units/1,000 Ml) 10 unit in 1,000 mls @ 500 mls/hr IV .CONTINUOUS NEENA Oxytocin/Lactated Ringer's (Pitocin In Lr 10 Units/1,000 Ml) 10 unit in 1,000 mls @ 12 mls/hr IV TITRATE NEENA; Protocol Last Titration: 09/09/18 18:42 Dose: 900 mls/hr Influenza Virus Vaccine (Pharmacy To Dose - Influenza Vaccine) 1 each IM ONETIME ONE Stop: 09/09/18 09:46 Last Admin: 09/10/18 15:45 Dose: Not Given Influenza Virus Vaccine (Fluzone Quad [id number] Syringe) 60 mcg IM .ONCE ONE Stop: 09/09/18 16:01 Last Admin: 09/10/18 15:46 Dose: Not Given Influenza Virus Vaccine (Pharmacy To Dose - Influenza Vaccine) 1 each IM ONETIME ONE Stop: 09/10/18 15:44 Influenza Virus Vaccine (Fluzone Quad [id number] Syringe) 60 mcg IM .ONCE ONE Stop: 09/10/18 16:01 Last Admin: 09/10/18 15:56 Dose: 60 mcg Lidocaine HCl (Xylocaine 1%) Confirm Administered Dose 50 ml .ROUTE .STK-MED ONE Stop: 09/09/18 19:01 Last Admin: 09/09/18 19:19 Dose: 50 ml Lidocaine HCl (Xylocaine-Mpf 1%) 50 ml INJECT ONETIME ONE Stop: 09/09/18 19:11 Last Admin: 09/09/18 19:05 Dose: 50 ml Misoprostol (Cytotec) Confirm Administered Dose 1,000 mcg .ROUTE .K-MED ONE Stop: 09/09/18 19:04 Last Admin: 09/10/18 01:39 Dose: Not Given Misoprostol (Cytotec) 1,000 mcg PO NOW STA Stop: 09/09/18 19:11 Last Admin: 09/09/18 19:05 Dose: 1,000 mcg Nalbuphine HCl (Nubain) 10 mg IVPUSH Q2H PRN PRN Reason: pain Ondansetron HCl (Zofran) 4 mg IVPUSH Q4H PRN PRN Reason: Nausea/Vomiting Sodium Chloride (Saline Flush) 10 ml FLUSH ASDIRECTED PRN PRN Reason: Keep Vein Open
[2018-09-11] MEDS: Ibuprofen 600 MG Tab PO PRN (10:06)
[2018-09-11] MEDS: Prenatal Multivitamin with Calcium/Folic Acid/Iron Tab PO SCH (10:06)
[2018-09-11 10:26] VITALS: BP 111/56
== END 2018-09-11 11:40 | disposition home or self-care (01) | DRG 806 ==
LOC: JD.OB 07:13 → OBSVTOIN 18:42 → JD.OB 18:43
PROVIDERS: ADMIT Obstetrics & Gynecology; ATTEND Obstetrics & Gynecology
PROC: 10907ZC Drainage of Amniotic Fluid, Therapeutic from Products of Conception, Via Natural or Artificial Opening (ICD-10-PCS; principal; 2018-09-09)
PROC: 0U7C7ZZ Dilation of Cervix, Via Natural or Artificial Opening (ICD-10-PCS; principal; 2018-09-09)
PROC: 0UQMXZZ Repair Vulva, External Approach (ICD-10-PCS; principal; 2018-09-09)
PROC: 10E0XZZ Delivery of Products of Conception, External Approach (ICD-10-PCS; principal; 2018-09-09)
PROC: 0HQ9XZZ Repair Perineum Skin, External Approach (ICD-10-PCS; principal; 2018-09-09)
PROC: 3E0R3BZ Introduction of Anesthetic Agent into Spinal Canal, Percutaneous Approach (ICD-10-PCS; 2018-09-09)
PROC: 00HU33Z Insertion of Infusion Device into Spinal Canal, Percutaneous Approach (ICD-10-PCS; 2018-09-09)
PROC: 3E02340 Introduction of Influenza Vaccine into Muscle, Percutaneous Approach (ICD-10-PCS; 2018-09-09)
DX: O99.344 Other mental disorders complicating childbirth (principal); O99.324 Drug use complicating childbirth; Z37.0 Single live birth; O99.354 Diseases of the nervous system complicating childbirth; O69.81X0 Labor and delivery complicated by cord around neck, without compression, not applicable or unspecified; O70.0 First degree perineal laceration during delivery; Z3A.39 39 weeks gestation of pregnancy; O99.334 Smoking (tobacco) complicating childbirth; F17.210 Nicotine dependence, cigarettes, uncomplicated; F41.9 Anxiety disorder, unspecified; F31.9 Bipolar disorder, unspecified; F90.9 Attention-deficit hyperactivity disorder, unspecified type; G43.909 Migraine, unspecified, not intractable, without status migrainosus; O99.62 Diseases of the digestive system complicating childbirth; K21.9 Gastro-esophageal reflux disease without esophagitis; Z23 Encounter for immunization
CPT/HCPCS: 01967; 36415; 51701; 51702; 59025; 59200; 59409; 80306; 82962; 85025; 86592; 90686; A9270-GY; G0008; G0010; J2590; J3010; J3490; J7120

== ENCOUNTER 2025-02-22 02:45 | Emergency (ER) | payer BC, MEDICAID ==
[2025-02-22] MEDS ORDERED: Sodium Chloride 0.9% 10 ML Syringe FLUSH PRN (03:07)
[2025-02-22 03:15] LABS: BASOPHILS ABSOLUTE AUTO 0.1 K/mm3 (0.0-0.2); BASOPHILS PERCENT AUTO 0.7 % (0.0-1.0); EOSINOPHILS ABSOLUTE AUTO 0.3 K/mm3 (0.0-0.4); EOSINOPHILS PERCENT AUTO 3.3 % (0.0-6.0); IMMATURE GRAN ABSOLUTE AUTO 0.02 K/mm3 (0.00-0.05); IMMATURE GRAN PERCENT AUTO 0.2 % (0.0-0.4); LYMPHOCYTES ABSOLUTE AUTO 3.5 K/mm3 (1.0-4.8); LYMPHOCYTES PERCENT AUTO 40.4 % (24.0-44.0); MEAN PLATELET VOLUME 9.1 fl (9.4-12.3); MONOCYTES ABSOLUTE AUTO 0.6 K/mm3 (0.0-0.8); MONOCYTES PERCENT AUTO 6.5 % (0.0-8.0); NEUTROPHILS ABSOLUTE AUTO 4.2 K/mm3 (1.8-7.7); NEUTROPHILS PERCENT AUTO 48.9 % (41.0-71.0); NRBC ABSOLUTE 0.00 (0.00-0.02); NRBC PERCENT 0.0 % (0.0-0.2); PLATELET COUNT,PLT 258 K/mm3 (150-400); RED BLOOD CELL COUNT 4.79 M/mm3 (4.10-5.30); WHITE BLOOD CELL COUNT,WBC 8.58 K/mm3 (3.9-11.3)
[2025-02-22] MEDS: Alum Hydrox/Mag Hydrox/Simeth 30 ML, Lidocaine 2% 15 ML PO ONE (03:28)
[2025-02-22] MEDS: Iopamidol 612 MG/ML 100 ML Bottle IVPUSH ONE (03:34)
[2025-02-22 03:47] LABS: A/G RATIO 1.0 (1-2); ALANINE AMINOTRANSFERASE,ALT 26.0 U/L (14-59); ASPARTATE AMNIOTRANSFERASE,AST 21.0 U/L (15-37); BILIRUBIN TOTAL 0.2 mg/dL (0.2-1.0); BLOOD UREA NITROGEN,BUN 9.0 mg/dL (7-18); CARBON DIOXIDE,CO2 29.0 mEq/L (21-32); CHLORIDE,CL 106.0 mEq/L (98-107); CREATININE 0.5 mg/dL (0.55-1.02); EST CRCL DRUG DOSING (CG) 156.81 mL/min; ESTIMATED GFR 131.0 mL/min (>60); GLUCOSE RANDOM 103.0 mg/dL (70-99); POTASSIUM,K 3.5 mEq/L (3.5-5.1); PROTEIN TOTAL,TP 6.4 g/dl (6.4-8.2); SODIUM,NA 143.0 mEq/L (136-145)
[2025-02-22 03:58] LABS: ETHANOL BLOOD MEDICAL 0.0 gm% (0.00)
[2025-02-22 06:29] VITALS: BP 120/72; PULSE 54
== END 2025-02-22 06:28 | disposition left against medical advice (07) ==
LOC: JD.ED 02:45
DX: R10.84 Generalized abdominal pain (principal); R11.2 Nausea with vomiting, unspecified; Z53.20 Procedure and treatment not carried out because of patient's decision for unspecified reasons
CPT/HCPCS: 36415; 74177; 80053; 80307; 83690; 83735; 84703; 85025; 96360; 99284; A9270; J7030; Q9967